=== PATIENT | female | born 1985 | race Caucasian/White ===

== ENCOUNTER 2017-07-12 15:11 | Emergency (ER) | payer MEDICAID ==
[2017-07-12 15:29] VITALS: BMI 35.7
[2017-07-12 15:42] VITALS: RESP 18
--- NOTE | 2017-07-12 16:12 | C.PDOC ---
Time Seen by Provider: 07/12/17 15:43 Chief Complaint (Nursing): Abdominal Pain Past Medical History Vital Signs: Last Vital Signs Temp 97.8 F 07/12/17 15:29 Pulse 84 07/12/17 15:29 Resp 18 07/12/17 15:29 BP 111/70 07/12/17 15:29 Pulse Ox 100 07/12/17 15:29 - Medical History PMH: Asthma, HTN, Pneumonia Surgical History: Cholecystectomy - Social History Hx Alcohol Use: Yes (Not during ) Hx Substance Use: No - Immunization History Hx Tetanus Toxoid Vaccination: No Hx Influenza Vaccination: Yes (2018) Hx Pneumococcal Vaccination: No ED Course And Treatment O2 Sat by Pulse Oximetry: 100 Disposition - Disposition
--- NOTE | 2017-07-12 16:33 | C.PDOC ---
History Of Present Illness 32 year old female is referred to the ED by Dr. Curtis for evaluation. Patient is , 18 weeks with gestational diabetes with labile glucose, labile HTN. Patient has a history of preclampsia, prior syncopal episodes in prior . Patient now c/o occasional near syncopal episodes, patient reports it was advised it was due to unstable glucose. Patient is also c/o LLQ pain associated with nausea, vomit, diarrhea for the past 2 days. Patient states prior US "were fine". Patient denies vaginal dysuria, vaginal bleeding, back pain, weakness, numbness. REFERRED DR CURTIS FOR EVALATION. EGA 18 WKS, GEST DIABETES W LABILE GLUCOSE, LABILE HTN. HO PREECLAMPSIA. PRIOR SYNCOPAL EPISODES PRIOR TO , NOW W OCC NEAR SYNCOPAL EPISODES. PS WAS ADVISED WAS DUE TO UNSTABLE GLUCOSE. ALSO CO NVD X 2 DAYS. +LLQ PAIN. NO VB. PS PRIOR US "WERE FINE". EXAM MILD DIST NONTOXIC ABD +LLQ TEND SOFT NO R/G REMAINDER NEG Time Seen by Provider: 07/12/17 15:43 Chief Complaint (Nursing): Abdominal Pain History Per: Patient History/Exam Limitations: no limitations Onset/Duration Of Symptoms: Days Current Symptoms Are (Timing): Still Present Recent travel outside of the [place]: No Additional History Per: Patient Past Medical History Reviewed: Historical Data, Nursing Documentation, Vital Signs Vital Signs: Last Vital Signs Temp 97.8 F 07/12/17 15:29 Pulse 84 07/12/17 15:29 Resp 18 07/12/17 15:29 BP 111/70 07/12/17 15:29 Pulse Ox 100 07/12/17 18:40 - Medical History PMH: Asthma, HTN, Pneumonia Surgical History: Cholecystectomy Family History: States: No Known Family Hx - Social History Hx Alcohol Use: Yes (Not during ) Hx Substance Use: No - Immunization History Hx Tetanus Toxoid Vaccination: No Hx Influenza Vaccination: Yes (2018) Hx Pneumococcal Vaccination: No Review Of Systems Constitutional: Positive for: Weakness. Negative for: Fever, Chills Cardiovascular: Negative for: Chest Pain Respiratory: Negative for: Cough, Shortness of Breath Gastrointestinal: Positive for: Nausea, Vomiting, Abdominal Pain, Diarrhea Genitourinary: Negative for: Hematuria Skin: Negative for: Rash Neurological: Negative for: Weakness, Numbness Physical Exam - Physical Exam Appears: Non-toxic, Other (Mild distress) Skin: Normal Color, Warm, Dry Head: Atraumatic, Normacephalic Eye(s): bilateral: Normal Inspection Nose: No Discharge Oral Mucosa: Moist Neck: Normal ROM, Supple Chest: Symmetrical Cardiovascular: Rhythm Regular, No Murmur Respiratory: Normal Breath Sounds, No Rales, No Rhonchi, No Wheezing Gastrointestinal/Abdominal: Soft, Tenderness (LLQ), No Guarding, No Rebound Extremity: Normal ROM, No Tenderness, No Swelling Neurological/Psych: Oriented x3 Gait: Steady ED Course And Treatment - Laboratory Results Result Diagrams: 07/12/17 17:02 07/12/17 17:02 O2 Sat by Pulse Oximetry: 100 (On RA) Pulse Ox Interpretation: Normal - CT Scan/US Pelvis US Other Rad Studies (CT/US): Read By Radiologist, Radiology Report Reviewed CT/US Interpretation: EXAM: US After First Trimester, Transabdominal. CLINICAL HISTORY: 32 years old female; Pain; complicated by abdominal or pelvic pain and other: Pelvic. pain; Lower; Second trimester; Gestational age or lmp: 11-16-17; . TECHNIQUE: Real-time transabdominal obstetrical ultrasound of the maternal pelvis and a second or third trimester. with image documentation. COMPARISON: No relevant prior studies available. FINDINGS: number: 1. presentation: Cephalic. amniotic fluid volume: Qualitatively normal. placenta: Posterior without previa, low-lying placenta, or abruption. cervix length: Ranges between 3 and 3.6 cm; the cervix is closed. BPD: 4.23 cm, 18 weeks 6 days. Head circumference: 16.03 cm, 18 weeks 6 days. Abdominal circumference: 13.98 cm, 19 weeks 3 days. Femur length: 2.9 cm, 18 weeks 6 days. ratios: HC/AC: 1.15. FL/AC: 20.77, out of range. FL/BPD: 68.68, out of range. CI: 74.51Composite ultrasound age: 19 weeks, 0 days. ultrasound TUSHAR: 12/06/2017. last menstrual period: 03/07/2017. menstrual age: 18 weeks, 1 days. TUSHAR by dates: 12/12/2017. Estimated weight: 275 +/- 41 g, 94th ultrasound percentile. heart rate: 147 bpm. anatomy: Urinary bladder, umbilical cord insertion site, stomach, 3 vessel umbilical cord, renal. regions , longitudinal spine appear grossly normal. Remaining anatomy was not studied. Maternal adnexa: Ovaries not visualized. IMPRESSION: 19 week 0 days single live intrauterine fetus in cephalic presentation, with an TUSHAR of 2017. Posterior placenta without previa, low lying placenta, or abruption. Qualitatively normal amniotic fluid volume. Limited visualization of anatomy. Recommend followup anatomy scan if not previously. performed. Thank you for allowing us to participate in the care of your patient. Dictated and Authenticated by: Arias Bush MD. 07/12/2017 6:36 PM Eastern Time ([place] & [place]) Progress - Re-Evaluation Re-evaluation Note: 07/12/17 16:26 D/W DR MONZON OBGYN CUSTOMER SERVICE ADVISOR AWARE OF ER FINDINGS. WILL EVAL IN ER 07/12/17 17:30 S/P EVAL DR MONZON: AGREES W ER [facility]. ADVISES TYLENOL FOR PAIN, NO ANTIDIARRHEAL MED @ THIS TIME. FU [facility] [place] FOR HIGH RISK EVAL 07/12/17 18:58 APPEARS COMFORTABLE NAD VSS. - Data Reviewed Data Reviewed: Lab, Diagnostic imaging, Old records Medical Decision Making Medical Decision Making: Impression: abdominal pain, nausea, vomit, diarrhea Plan: * Labs * urine culture * UA * Pelvis US Disposition Counseled Patient/Family Regarding: Studies Performed, Diagnosis, Need For Followup - Disposition Referrals: ROSA,THOMAS [Other] Disposition: HOME/ ROUTINE Disposition Time: 18:55 Condition: GOOD Prescriptions: Ondansetron [Zofran Odt] 4 mg PO TID PRN #9 odt PRN Reason: Nausea/Vomiting Instructions: Gestational Diabetes (DC), Diarrhea in Adolescents and Adults Forms: [facility] (Guamanian) - Clinical Impression Clinical Impression: Gestational diabetes, Diarrhea
[2017-07-12 17:06] LABS: BASO # 0.1 K/uL (0.0-0.2); BASO % 0.4 % (0.0-2.0); EOS # 0.2 K/uL (0.0-0.7); EOS % 1.4 % (0.0-4.0); HEMOGLOBIN 12.1 g/dL (11.0-16.0); LYMPH # 2.7 K/uL (1.0-4.3); LYMPH % 22.9 % (20.0-40.0); MEAN CELL VOLUME 88.2 fL (81.0-99.0); MEAN CORPUSCULAR HGB CONC 32.9 g/dL (33.0-37.0); MEAN PLATELET VOLUME 7.4 fL (7.2-11.7); MONO # 0.8 K/uL (0.0-0.8); MONO % 6.6 % (0.0-10.0); NEUT # 8.1 K/uL (1.8-7.0); NEUT % 68.7 % (50.0-75.0); RBC 4.17 Mil/uL (3.80-5.20); RED CELL DISTRIBUTION WIDTH 14.4 % (11.5-14.5); WHITE BLOOD COUNT 11.8 K/uL (4.8-10.8)
[2017-07-12 17:08] LABS: SQUAMOUS EPITHIAL 2 /hpf (0-5); URINE BACTERIA RARE (<OCC); URINE BILIRUBIN NEGATIVE (NEGATIVE); URINE BLOOD NEGATIVE (NEGATIVE); URINE CLARITY Clear (Clear); URINE COLOR Yellow (YELLOW); URINE GLUCOSE (UA) NORMAL (Normal); URINE LEUKOCYTE ESTERASE NEG Leu/uL (Negative); URINE PROTEIN NEGATIVE (NEGATIVE); URINE UROBILINOGEN NORMAL mg/dL (0.2-1.0)
[2017-07-12 17:30] LABS: ALBUMIN 3.4 g/dL (3.5-5.0); ALT/SGPT 33 U/L (9-52); AST/SGOT 36 U/L (14-36); BLOOD UREA NITROGEN 12 mg/dL (7-17); CALCIUM 8.3 mg/dl (8.6-10.4); GFR AFRICAN-AMERICAN > 60; GFR NON-AFRICAN AMERICAN > 60
--- NOTE | 2017-07-12 18:08 | CP.PCM.CON ---
History of Present Illness - History of Present Illness History of Present Illness: Pt is a 32yo LMP 03/07 of which she is certain presents @ 18.2wks . She c/ o nausea and diarrhea since yesteday. She denies emesis, c/o decreased appetite and has only wanted to take in liquids today which she has tolerated. She denies vag bleeding, odorous vag discharge, coitus, or srom. She c/o lower abdominal pain and is requesting pain medic for relief. Pt said she sees Dr. Villanueva for her care and had an appt yesterday. She states she did the 1hr gtt and her level was 166. She states after she left office and went to her car she felt like she was going to faint. She said she checked her glucose level and it ws 43. POBHX: @ 37 weeks w/ preeclampsia PSHX: Lap band; right foot x3 due to trauma; Lap choly PMHX: ASTHMA; GUS; Claustrophobia Allergy: shellfish; nkda Medic: Albuterol; symbicort; pnv; benedryl Review of Systems - Constitutional Constitutional: Anorexia. absent: Chills, Excessive Sweating, Fever, Increased Appetite - EENT Ears: Dizziness - Cardiovascular Cardiovascular: absent: Chest Pain, Chest Pain at Rest, Chest Pain with Activity , Claudication - Respiratory Respiratory: absent: Cough, Dyspnea on Exertion, Wheezing, Pain on Inspiration, Chest Congestion - Gastrointestinal Gastrointestinal: Abdominal Pain, Diarrhea. absent: Vomiting - Genitourinary Genitourinary: absent: Dysuria, Flank Pain - Reproductive: Female Reproductive:Female: absent: Abnormal Vaginal Bleeding, Vaginal Odor, Vaginal Pruritis - Psychiatric Psychiatric: Anxiety, Change in Appetite Past Patient History - Past Social History Smoking Status: Former Smoker Alcohol: None Drugs: Denies - CARDIAC Hx Hypertension: Yes - PULMONARY Hx Asthma: Yes Hx Pneumonia: Yes - ENDOCRINE/METABOLIC Hx Endocrine Disorders: Yes (SEE COMMENT) Other/Comment: DIABETIC NOT ON MEDICATIONS? - MUSCULOSKELETAL/RHEUMATOLOGICAL Hx Musculoskeletal Disorders: Yes (SEE COMMENT) Other/Comment: RIGHT FOOT SURGERY - GASTROINTESTINAL Hx Gastrointestinal Disorders: Yes - GENITOURINARY/GYNECOLOGICAL Hx Genitourinary Disorders: Yes (SEE COMMENT) Other/Comment: HIGH RISK ; PREECLAMPSIA - PSYCHIATRIC Hx Substance Use: No - SURGICAL HISTORY Hx Cholecystectomy: Yes Meds Allergies/Adverse Reactions: Allergies Allergy/AdvReac Type Severity Reaction Status Date / Time shellfish derived Allergy SHORTNESS Verified 07/12/17 15:25 OF BREATH Physical Exam - Head Exam Head Exam: ATRAUMATIC, NORMOCEPHALIC - Respiratory Exam Respiratory Exam: NORMAL BREATHING PATTERN. absent: Accessory Muscle Use - GI/Abdominal Exam GI & Abdominal Exam: Soft. absent: Distended, Guarding, Mass, Rebound, Rigid, Tenderness - Rectal Exam Rectal Exam: Deferred - Exam External exam: NORMAL EXTERNAL EXAM. absent: Lacerations, Lesions, Swelling Speculum exam: NORMAL SPECULUM EXAM, Vaginal Discharge (physiologic in appearance, nonodorous). absent: Erythema, Laceration, Vaginal Bleeding Bimanual exam: NORMAL BIMANUAL EXAM, Uterine Enlargement (20 weeks). absent: Adenexal Mass, Cervical Motion Tendernes (Cervix is long/closed/thi), Uterine Tenderness - Extremities Exam Extremities exam: Positive for: normal inspection - Neurological Exam Neurological exam: Oriented x3 - Skin Skin Exam: Normal Color, Warm Results - Vital Signs Recent Vital Signs: Last Vital Signs Temp 97.8 F 07/12/17 15:29 Pulse 84 07/12/17 15:29 Resp 18 07/12/17 15:29 BP 111/70 07/12/17 15:29 Pulse Ox 100 07/12/17 17:08 - Labs Result Diagrams: 07/12/17 17:02 07/12/17 17:02 Labs: Laboratory Results - last 24 hr 07/12/17 07/12/17 07/12/17 15:46 16:44 17:02 WBC 11.8 H RBC 4.17 Hgb 12.1 Hct 36.8 MCV 88.2 MCH 29.0 MCHC 32.9 L RDW 14.4 Plt Count 267 MPV 7.4 Neut % (Auto) 68.7 Lymph % (Auto) 22.9 Person % (Auto) 6.6 Eos % (Auto) 1.4 Baso % (Auto) 0.4 Neut # (Auto) 8.1 H Lymph # (Auto) 2.7 Person # (Auto) 0.8 Eos # (Auto) 0.2 Baso # (Auto) 0.1 Sodium Potassium Chloride Carbon Dioxide Anion Gap BUN Creatinine Est GFR ( Amer) Est GFR (Non-Af Amer) POC Glucose (mg/dL) 78 Random Glucose Calcium Total Bilirubin AST ALT Alkaline Phosphatase Total Protein Albumin Globulin Albumin/Globulin Ratio Beta HCG, Quant Urine Color Yellow Urine Clarity Clear Urine pH 6.0 Ur Specific Chauvin 1.027 Urine Protein Negative Urine Glucose (UA) Normal Urine Ketones Negative Urine Blood Negative Urine Nitrate Negative Urine Bilirubin Negative Urine Urobilinogen Normal Ur Leukocyte Esterase Neg Urine WBC (Auto) < 1 Urine RBC (Auto) 1 Ur Squamous Epith Cells 2 Ur Transition Epith Cell < 1 Urine Bacteria Rare 07/12/17 17:02 WBC RBC Hgb Hct MCV MCH MCHC RDW Plt Count MPV Neut % (Auto) Lymph % (Auto) Person % (Auto) Eos % (Auto) Baso % (Auto) Neut # (Auto) Lymph # (Auto) Person # (Auto) Eos # (Auto) Baso # (Auto) Sodium 136 Potassium 4.4 Chloride 103 Carbon Dioxide 22 Anion Gap 15 BUN 12 Creatinine 0.5 L Est GFR ( Amer) > 60 Est GFR (Non-Af Amer) > 60 POC Glucose (mg/dL) Random Glucose 79 Calcium 8.3 L Total Bilirubin 0.4 AST 36 ALT 33 Alkaline Phosphatase 34 L Total Protein 6.9 Albumin 3.4 L Globulin 3.5 Albumin/Globulin Ratio 1.0 Beta HCG, Quant 5142.10 Urine Color Urine Clarity Urine pH Ur Specific Chauvin Urine Protein Urine Glucose (UA) Urine Ketones Urine Blood Urine Nitrate Urine Bilirubin Urine Urobilinogen Ur Leukocyte Esterase Urine WBC (Auto) Urine RBC (Auto) Ur Squamous Epith Cells Ur Transition Epith Cell Urine Bacteria Assessment & Plan - Assessment and Plan (Free Text) Assessment: Impression: 18.2wk IUP obstetrically stable Diarrhea Plan: Medical management per ED dr zamudio pt should f/u in 1wk w/ ob
--- NOTE | 2017-07-12 18:46 | US ---
PROCEDURE: Obstetrical ultrasound examination HISTORY: PAIN COMPARISON: None available TECHNIQUE: Ultrasound examination was performed transabdominally. Additional transvaginal evaluation was performed for evaluation of the cervix. FINDINGS: There is a single live intrauterine gestation in cephalic presentation. The heart rate is 147 beats per minute. Normal posterior placenta is identified. There is no evidence placenta previa. The cervix is closed and measures 3.0 cm in length. A grossly normal quantity of amniotic fluid is visualized. biometry yields a gestational age of 19 weeks 0 days. TUSHAR by ultrasound examination is 12/06/2017. Limited review of anatomy demonstrates fluid distending the stomach and urinary bladder. Two normal kidneys are visualized without evidence of hydronephrosis. A three-vessel umbilical cord is identified. The anterior abdominal wall is intact. IMPRESSION: Single live intrauterine gestation of approximately 19 weeks 0 days. No gross anatomic abnormality. Full anatomic evaluation was not performed this time. Posterior placenta. No previa. Cervix closed. Cephalic presentation. Normal amniotic fluid volume.
[2017-07-12 19:22] VITALS: BP 107/69; PULSE 77; TEMP 98; O2SAT 98
== END 2017-07-12 19:40 | disposition home or self-care (01) ==
LOC: C.ER 15:11
DX: O24.419 Gestational diabetes mellitus in pregnancy, unspecified control (principal); O26.892 Other specified pregnancy related conditions, second trimester; Z3A.19 19 weeks gestation of pregnancy; R19.7 Diarrhea, unspecified